=== PATIENT | male | born 1945 | race Caucasian/White ===

== ENCOUNTER 2017-02-17 23:50 | Inpatient (IN) | payer MEDICARE ==
--- NOTE | ~2017-02-17 | CN ---
Consultation Report [facility] [address] [place]. [address] NAME: RISHI AQUINO : 41 STATUS : ADM IN [facility]#: [id number] AGE: 71 ADM/REG DATE : 02/17/17 MR#: [id number] REPORT SERV DATE: 02/18/17 DICTATED BY: CHECO RAJAN DATE: 02/18/17 REPORT STATUS : Draft TRANSCRIBED BY: MODL DATE: 02/18/17 CONSULTATION DATE OF CONSULTATION: REASON FOR CONSULTATION: Mr. Rishi Aquino is a 71-year-old male, who enters from the emergency room with chest discomfort. CVD PHYSICIAN: Checo Rajan M.D. HISTORY OF PRESENT ILLNESS: Mr. Aquino has a long history of coronary artery disease with previous stenting. About a week ago, he then began to develop right shoulder pain. This started to radiate up until right neck and chest. It had occurred randomly throughout the day and went to usually last 5-10 minutes. He is fairly inactive, so it is hard to get a specific relationship to exercise. He did not get nausea, vomiting, diaphoresis, palpitations, syncope, or presyncope with this. He would occasionally get short of breath. REVIEW OF SYSTEMS: Negative for PND, rash, change in bowel habit, fever or chills, palpitations, syncope or presyncope. Rest is negative. PAST MEDICAL HISTORY: 1. Hypertension. 2. Hyperlipidemia, on atorvastatin. 3. Bare metal stent, 2008. 4. Peripheral vascular disease without significant claudication. 5. Continued cigarette abuse. SOCIAL HISTORY: Continues to smoke. He is fairly inactive. FAMILY HISTORY: Noncontributory. PHYSICAL EXAMINATION: VITAL SIGNS: Blood pressure 158/80, pulse 73. He is afebrile, resting comfortably at this time without any chest discomfort. GENERAL: Resting comfortably, nutritional status appears adequate. EYES: PERRLA. LUNGS: No labored use of accessory muscles. Without rales or wheezes. COR: PMI is not displaced. No thrills or heaves. NL S1 and S2. S4 gallop is present. PULSES: Carotids without bruits. ABD: +BS, nontender. EXT: 1+ edema noted. SKIN: No petechiae. NEURO: Alert and oriented. Does not appear anxious or depressed. Consultation Report [facility] [address] [place]. [address] NAME: RISHI AQUINO : 41 STATUS : ADM IN PAT#: [id number] AGE: 71 ADM/REG DATE : 02/17/17 MR#: [id number] REPORT SERV DATE: 02/18/17 DICTATED BY: CHECO RAJAN DATE: 02/18/17 REPORT STATUS : Draft TRANSCRIBED BY: MODL DATE: 02/18/17 LABORATORY EVALUATION: 1. EKG shows a right bundle-branch block, but no acute changes. 2. Troponin is increased from 0.03 to 0.07. ASSESSMENT: At this time, this gentleman has known coronary artery disease and presents with chest pain at rest with mildly positive enzymes. At this time, we will schedule for cardiac catheterization and maximize medical therapy. He understands the risks and benefits of the arteriogram having been through this before. Unfortunately, we will have to keep in mind that he has been medically noncompliant in the past. MANGO/JENNY Checo Rajan M.D. / [id number] CC: Pratik Neves M.D.
--- NOTE | ~2017-02-17 | CN ---
Consultation Report [facility] [address] [place]. [address] NAME: RISHI AQUINO : 41 STATUS : ADM IN PAT#: [id number] AGE: 71 ADM/REG DATE : 02/17/17 MR#: [id number] REPORT SERV DATE: 02/19/17 DICTATED BY: MANISHA JACKSON DATE: 02/18/17 REPORT STATUS : Draft TRANSCRIBED BY: MODL DATE: 02/18/17 CONSULTATION DATE OF CONSULTATION: 02/18/2017 REASON FOR CONSULTATION: Multivessel coronary artery disease. HISTORY OF PRESENT ILLNESS: This is a pleasant 71-year-old male, who has a longstanding history of coronary artery disease, status post bare metal stent in 2008 with ongoing tobacco abuse, high blood pressure, hyperlipidemia, and medical noncompliance. He presented to the emergency room on the evening of 02/17/2017 with complaints of chest tightness and neck pain that radiated up into the right shoulder. He said that this has been going on for a couple of weeks. He was also experiencing some lower extremity weakness. In the emergency room, he was found to have a mildly elevated troponin at 0.03. An EKG showed inferolateral T-wave inversion with ST depression. His blood pressure was elevated in the 160 to 200/100 range. His workup initially was to rule out TIA. He had a CT scan of the brain, which was negative for any acute abnormality. Second troponin was elevated at 0.07. Per TIA protocol, the patient was given Plavix 300 mg this morning and then taken for cardiac catheterization which revealed multivessel coronary artery disease including a distal left main coronary artery stenosis of 50%, a 75% stenosis of his mid-to- distal LAD, 70% stenosis to his first diagonal, 70% stenosis to his first obtuse marginal, 60% proximal RCA lesion, and a 99% right PDA, with ejection fraction calculated around 45% with no mention of valvular abnormality. He had a carotid ultrasound performed earlier today, which showed no significant carotid disease. Currently, the patient is recovering after right radial catheterization with no complaints of chest pain or shortness of breath. His lower extremity weakness has improved and his blood pressure is in the 170s/90s range. PAST MEDICAL HISTORY: High blood pressure, hyperlipidemia, peripheral vascular disease, coronary artery disease with previous stent, ongoing tobacco abuse, and medical noncompliance. SURGICAL HISTORY: Bare metal stent in 2009, and tonsillectomy. SOCIAL HISTORY: He is a 7-vkxd-abs-day smoker for 30 years. Denies any alcohol abuse or use of illicit drugs. He is retired and . 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 FAMILY HISTORY: He has a mother with coronary artery disease and father who of leukemia. ALLERGIES: NO KNOWN DRUG ALLERGIES. HOME MEDICATIONS: Aspirin 325 mg p.o. daily, Toprol-XL 100 mg p.o. daily, and lisinopril 10 mg per day. Consultation Report [facility] [id number] [place]. [address] NAME: RISHI AQUINO : 41 STATUS : ADM IN [facility]#: [id number] AGE: 71 ADM/REG DATE : 02/17/17 MR#: [id number] REPORT SERV DATE: 02/19/17 DICTATED BY: MANISHA JACKSON DATE: 02/18/17 REPORT STATUS : Draft TRANSCRIBED BY: JENNY DATE: 02/18/17 REVIEW OF SYSTEMS: A 12-point review of systems was obtained and is negative other than HPI. PHYSICAL EXAMINATION: VITAL SIGNS: From today, temperature 97.5, heart rate 77, blood pressure 156/73, respiratory rate 20, and O2 saturation 94% on 2 L. GENERAL: Pleasant, obese male in no acute distress. NEURO: Alert and oriented x3. Pupils are equal, round, and reactive to light and accommodation. He has equal strength bilaterally of upper extremities and lower extremities. PSYCH: Normal mood. Talkative. Friendly. HEENT: Head normocephalic and atraumatic. Sclerae clear. Poor dentition, but no obvious caries or abscesses. Nose midline with no abnormality. NECK: Supple with no thyromegaly or lymphadenopathy. LUNGS: Clear to auscultation bilaterally with normal effort. He has a productive cough. CARDIAC: S1 and S2 with no murmurs, rubs, or gallops. ABDOMEN: Soft, obese, and nontender with active bowel sounds. EXTREMITIES: Free of cyanosis, clubbing, or edema. LABORATORY DATA: White blood cell count 11.4, hemoglobin 18.4, hematocrit 52.8, platelets 231. Sodium 146, potassium 4.3, chloride 111, bicarbonate 29, BUN 14, creatinine 0.9, glucose 146. BNP 149. ASSESSMENT AND PLAN: This is a 71-year-old male, who is admitted with chest pain and neurological symptoms, initially thought to be in line with transient ischemic attack or cerebrovascular accident. His blood pressure was also elevated upon admission. His neuro workup was negative and he was given Plavix 300 mg orally this morning x1 dose per TIA protocol. The patient was then taken for cardiac catheterization, which showed multivessel coronary artery disease as described above. The patient needs four to five-vessel CAB, but unfortunately, given the fact that he was given Plavix this morning, we will need to wait for Plavix washout. I did discuss the risk and benefits of surgery with the patient as well as his STS risk scores. STS risk stratification for him in this particular surgery includes an overall mortality of 3.6% and a morbidity/mortality of 27.5%. I discussed these findings in relation to expectation for surgery and recovery, and the patient is willing to proceed. He is, however, upset that he is going to have to wait several days before proceeding with surgery. I discussed the reasons of why we choose to wait given the fact that he was given Plavix and he says that he understands. As for now, the patient is agreeable to stay. We will get a CT scan of his chest without contrast due to the history of heavy smoking as well as a bilateral lower extremity venous mapping and then get TEG with Plavix cup on to check platelet inhibition and proceed with surgery either Saturday or Saturday. We would like to thank you for the consultation. We look forward to helping you take care of Mr. Rishi Aquino. Consultation Report [address] [address] NAME: RISHI AQUINO : 41 STATUS : ADM IN PAT#: [id number] AGE: 71 ADM/REG DATE : 02/17/17 MR#: [id number] REPORT SERV DATE: 02/19/17 DICTATED BY: MANISHA JACKSON DATE: 02/18/17 REPORT STATUS : Draft TRANSCRIBED BY: JENNY DATE: 02/18/17 JENNIFER/JENNY Manisha Jackson NP / [id number] CC: Isauro Cordoba M.D.
--- NOTE | ~2017-02-17 | CN ---
Consultation Report [facility] [address] [place]. [address] NAME: RISHI AQUINO : 41 STATUS : ADM IN PAT#: [id number] AGE: 71 ADM/REG DATE : 02/17/17 MR#: [id number] REPORT SERV DATE: 02/20/17 DICTATED BY: CURTIS ENRIQUEZ DATE: 02/20/17 REPORT STATUS : Draft TRANSCRIBED BY: MODL DATE: 02/20/17 CONSULTATION DATE OF CONSULTATION: 02/20/2017 REQUESTING PHYSICIAN: Dr. Montgomery. CHIEF COMPLAINT: Shortness of breath in a patient, tentatively scheduled for coronary artery bypass graft surgery. HISTORY OF PRESENT ILLNESS: Mr. Rishi Aquino is a morbidly obese 71-year-old white male with a past medical history significant for coronary artery disease, hypertension, dyslipidemia, and ongoing tobacco abuse, who presents to [facility]'s Emergency Room with complaints of chest pain and lower extremity weakness. It should be noted that, Mr. Aquino has not been hospitalized recently and is usually in fairly good health. Mr. Aquino is not currently followed by a handkerchief maker. He has not usually required supplemental oxygen. He takes no pulmonary medications. The patient has smoked cigarettes up until the time of presentation. He has smoked approximately one pack a day for a period of approximately thirty years. He does have complaints of disordered sleep, which would include frequent nighttime awakenings and non-restorative sleep. He described his exercise tolerance as worsening as of late. This being said, he can usually walk 50 to 100 yards before experiencing some degree of shortness of breath. Mr. Aquino states that, he began to experience chest pain about a week ago. It was radiating up into the neck and chest. He did have some lower extremity weakness as well. The symptoms became progressively worse and culminated in his presentation to [facility]'s emergency room. On arrival, he was found to have a systolic blood pressure of 167. He was afebrile. Oxygenation was 93% on room air. Initial blood work revealed a white blood cell count of 9900, creatinine was 0.92. He did eventually undergo cardiac catheterization, which demonstrated multivessel coronary artery disease. The patient eventually underwent a CT of the chest, which demonstrated a calcified granuloma in the left lung. Emphysematous changes were appreciated in the apices. Radiology suggested that there may be a mild interstitial fibrosis with peripheral scarring and ground-glass opacities, thyroid nodule is described as well. As the patient is scheduled for a possible coronary artery bypass graft surgery, Pulmonary has been consulted for risk stratification as well as optimization prior to the surgery. Currently, Mr. Aquino's main pulmonary complaint is cough. He is producing a small amount of non-purulent sputum. He denies shortness of breath at rest. He denies any wheezing. The patient states that, he has had two pneumonias in the remote past. He does not have frequent exacerbations of COPD. He denies childhood asthma. He denies any recent sick contacts. Consultation Report [facility] [id number] [place]. [address] NAME: RISHI AQUINO : 41 STATUS : ADM IN [facility]#: [id number] AGE: 71 ADM/REG DATE : 02/17/17 MR#: [id number] REPORT SERV DATE: 02/20/17 DICTATED BY: CURTIS ENRIQUEZ DATE: 02/20/17 REPORT STATUS : Draft TRANSCRIBED BY: JENNY DATE: 02/20/17 The patient does have known hypertension and dyslipidemia. He has previous known coronary artery disease. He states that, he has no current angina like symptoms. He denies any orthopnea, paroxysmal nocturnal dyspnea, or dependent edema. In regard to constitutional symptoms, he currently denies fever, chills, nausea, vomiting, chest pain, abdominal pain, or edema. PAST MEDICAL HISTORY: 1. Hypertension. 2. Dyslipidemia. 3. Coronary artery disease, status post stent placement. 4. Peripheral vascular disease. 5. Tobacco dependency. 6. Nephrolithiasis. PAST SURGICAL HISTORY: Tonsillectomy and adenoidectomy. FAMILY HISTORY: The patient states that, his father of lung cancer. SOCIAL HISTORY: The patient is . He has one son. He denies any known exposures to dust, silica, or asbestos. TOBACCO/ALCOHOL: As previously mentioned, the patient smoked cigarettes up until the time of presentation. He has smoked approximately one pack a day for a period of thirty years. He denies any recent alcohol or illicit drug use. MEDICATIONS: 1. Crestor. 2. Lisinopril. 3. Metoprolol. 4. Aspirin. ALLERGIES: THE PATIENT HAS NO KNOWN DRUG ALLERGIES. REVIEW OF SYSTEMS: Complete review of systems was performed with pertinent positives and negatives contained within the body of the HPI. PHYSICAL EXAMINATION: VITAL SIGNS: Blood pressure is 177/84, heart rate 69, T-max is 97.6, respiratory rate is 18, and SpO2 is 91% on room air. GENERAL: The patient is a pleasant, well-nourished/well-developed male, who is not currently exhibiting any signs of acute distress. Skin: Skin with appropriate texture and turgor. No rashes, lesions, or ulcers. Nails are clear without cyanosis or clubbing. Consultation Report [facility] [id number] [place]. [address] NAME: RISHI AQUINO : 41 STATUS : ADM IN [facility]#: [id number] AGE: 71 ADM/REG DATE : 02/17/17 MR#: [id number] REPORT SERV DATE: 02/20/17 DICTATED BY: CURTIS ENRIQUEZ DATE: 02/20/17 REPORT STATUS : Draft TRANSCRIBED BY: JENNY DATE: 02/20/17 HEENT: Head: Skull is normocephalic/atraumatic. Facies symmetric. No masses or lesions. Eyes: Sclera anicteric, conjunctiva pink without exudates. Extra ocular movements intact. Pupils are equal, round, reactive to light. Ears: Auricles and tragus without pain to palpation. Hearing is grossly intact. Nose: Bilateral nasal patency. Sinuses without tenderness upon palpation. Throat: The patient is edentulous. Mallampati class 3-4. Lips, oral mucosa, tongue, palate, and pharynx pink and moist without lesions. Uvula rises equally on phonation. Tongue midline without deviation. NECK: Neck supple. Trachea midline. No cervical lymphadenopathy appreciated. THORAX/LUNGS: Thorax is symmetric with equal chest rise. Breath sounds audible through entire field. No rales, wheezes. A few scattered rhonchi appreciated throughout. CARDIOVASCULAR: Regular rate and rhythm. No murmurs, rubs, or gallops. Anterior chest without thrills, heaves, or lifts. ABDOMEN: Soft. Non-distended, non-tender. Active bowel sounds in all four quadrants. No hepatosplenomegaly noted. PERIPHERAL VASCULAR: No edema. No varicosities, stasis changes, open sores, ulcerations, or phlebitis. 2+ pulses in radial and dorsalis pedis. MUSCULOSKELETAL: Full AROM and PROM in all joints. No evidence of erythema, deformity, or crepitus. NEUROLOGIC: CN II - XII grossly intact. Good muscle bulk and tone bilaterally. Strength 5/5 throughout. PSYCHIATRIC: The patient demonstrates good judgment and insight. The patient is A&O x 3. ACCESSORY DATA: Reveals a white blood cell count of 10,000, hemoglobin and hematocrit is 17.2 and 50. Creatinine is 0.72. CT of the chest reveals emphysematous changes in the apices. There is possible mild interstitial fibrosis in the bases. There is a calcified granuloma in the left lung. There is a 3 x 2.2 left thyroid nodule or cyst in the superior mediastinum. Echocardiogram reveals a left ventricular ejection fraction of 45%, normal right ventricular size and systolic function. Cardiac cath reveals the left main at 50%, mid LAD is 70%, first diagonal as 70%, left circumflex 70%, RCA 60%. IMPRESSION: 1. Coronary artery disease with multivessel disease. 2. Clinical chronic obstructive pulmonary disease. 3. Disordered sleep - possible obstructive sleep apnea. 4. Tobacco abuse - complicated. 5. Doubt pulmonary fibrosis. 6. Thyroid nodule/cyst. PLAN: 1. At this time, the patient has been tentatively scheduled for coronary artery bypass Consultation Report [address] [address] NAME: RISHI AQUINO : 41 STATUS : ADM IN [facility]#: [id number] AGE: 71 ADM/REG DATE : 02/17/17 MR#: [id number] REPORT SERV DATE: 02/20/17 DICTATED BY: CURTIS ENRIQUEZ DATE: 02/20/17 REPORT STATUS : Draft TRANSCRIBED BY: MODL DATE: 02/20/17 graft surgery. The plan is to allow for a Plavix washout. 2. In regard to the patient's risk stratification, we would consider him to be a moderate risk for pre, nabil, and postoperative pulmonary complications. Using the ARISCAT score, the patient has a 42.1% risk for pulmonary complications, which would include atelectasis, pneumonia, respiratory failure, hypoxemia, and even exacerbation of COPD. Using the Arozullah score, the patient would have a 4.2% risk for prolonged mechanical ventilation. To better elucidate the patient's risk stratification, we will obtain full pulmonary function testing with arterial blood gas sampling with further recommendations to follow. In an attempt to optimize the patient, we will place him on a full armamentarium of nebulized medications. There is no clear sign that the patient is currently exhibiting an exacerbation and as such, we will hold antibiotics and steroids at this time. 3. In regard to the patient's clinical COPD, again we will place him on nebulized medications. He would likely benefit from outpatient followup moving forward. 4. In regard to the patient's disordered sleep, we will obtain an overnight pulse oximetry to screen for possible obstructive sleep apnea. 5. In regard to the patient's ongoing tobacco abuse, we have spent greater than 10 minutes counseling the patient on the benefits of smoking cessation. 6. In regard to the suggested findings of pulmonary fibrosis on the patient's CT scan, these seem to be very mild in nature. We will revisit these findings with the radiology department. I do not see a clear indication to proceed with lung biopsy at the time of the procedure. The aforementioned impression and plan has been discussed with Dr. Fonseca, who will follow further recommendations. We thank you for this consult and look forward to participating in the care of Mr. Rishi Aquino. GBS/MODL Curtis Enriquez PA-C / [id number] CC: Shaista Wheeler M.D.
--- NOTE | ~2017-02-17 | IDS ---
Interim Discharge Summary [facility] [address] [place]. [address] NAME: RISHI AQUINO : 41 STATUS : ADM IN [facility]#: [id number] AGE: 71 ADM/REG DATE : 02/17/17 MR#: [id number] REPORT SERV DATE: 02/25/17 DICTATED BY: CONSUELO NEFF DATE: 02/25/17 REPORT STATUS : Draft TRANSCRIBED BY: MODEmmanuel DATE: 02/25/17 ADMISSION DATE: 02/17/2017 DISCHARGE DATE: Date that the patient has been transferred to [facility] ICU is 02/25/2017. DIAGNOSES: So far, 1. Acute coronary syndrome secondary to multivessel coronary artery disease, requiring coronary artery bypass graft which the patient is getting on 02/25/2017. 2. History of coronary artery stenting in the past and now the patient again presented with chest pain and abnormal EKG and underwent a cardiac catheterization that showed multivessel coronary artery disease, as outlined in the cardiac catheterization and hence, the need for the CABG. 3. Hyperlipidemia - the patient is on statin. 4. Hypertension - the patient is on adequate medications. 5. Obesity hypoventilation syndrome and obstructive sleep apnea from obesity - Pulmonology has been consulted and had ordered PFTs and will continue to follow the patient. 6. Tobacco abuse - the patient has stopped now and has been on a nicotine patch so far. 7. There was a concern that this patient had an early stroke as he complained of some arm weakness upon admission. However, a CT scan of the brain that was obtained came back negative for stroke and Neurology was consulted and they subsequently signed off on this patient as this is not an issue. BRIEF HOSPITAL COURSE: Mr. Rishi Aquino is a 71-year-old male patient with multiple risk factors for acute coronary syndrome. First of all, he has had coronary artery disease status post stenting; he has hypertension, obesity, hyperlipidemia, and smokes. The patient also has obstructive sleep apnea and smokes about a pack a day. Hence, the patient was admitted for ACS and Cardiology was consulted. The patient underwent a cardiac catheterization that showed multivessel disease and cardiothoracic surgery was consulted. As the patient was on Plavix, we had to wait until today for Plavix washout, so that he could have his coronary artery bypass graft. In the meantime, other doctors who have been consulted include Cardiothoracic Surgery, Pulmonology as the patient has ESTEBAN and OHS, Neurology briefly as there was a question of some arm weakness at the beginning of admission. However, the arm weakness and the neurological problem has resolved and it was just an incidental finding. The patient continued to be very stable throughout hospitalization until today and on the nicotine patch, he did not have any urge to smoke. He denied any symptoms of chest pain once he was started on the IV heparin all this while. His shortness of breath also was at baseline and the patient was able to ambulate fairly well in the hallways until 02/25/2017 on the day of his surgery. Hence, he is being moved to the service of Cardiothoracic Surgery with the patient being in [facility] ICU as of 02/25/2017 for CABG and post CABG care. Please consult hospitalist if necessary. Interim Discharge Summary [address] [address] NAME: RISHI AQUINO : 41 STATUS : ADM IN [facility]#: [id number] AGE: 71 ADM/REG DATE : 02/17/17 MR#: [id number] REPORT SERV DATE: 02/25/17 DICTATED BY: CONSUELO NEFF DATE: 02/25/17 REPORT STATUS : Draft TRANSCRIBED BY: JENNY DATE: 02/25/17 ALLEN/JENNY Consuelo Neff M.D. / [id number] CC: Consuelo Neff M.D.
--- NOTE | ~2017-02-17 | HP ---
History And Physical [facility] [address] [place]. [address] NAME: LALI AQUINO : 41 STATUS : ADM Demetria PAT#: [id number] AGE: 71 ADM/REG DATE : 02/17/17 MR#: [id number] REPORT SERV DATE: 02/18/17 DICTATED BY: ANGELA BLOUNT DATE: 02/18/17 REPORT STATUS : Draft TRANSCRIBED BY: MODEmmanuel DATE: 02/18/17 DATE OF ADMISSION: 02/17/2017 POINT OF ENTRY: [facility] Emergency Department. PRIMARY CARE PHYSICIAN: None at this time. Formerly, Dr. Mahesh Shannon. PRIMARY BAND AND CUFF CUTTER: Dr. Rajan. CHIEF COMPLAINT: Chest pain. HISTORY OF PRESENT ILLNESS: Mr. Aquino is a 71-year-old gentleman with a history of coronary artery disease with multiple prior PCIs as well as hypertension, hyperlipidemia, active tobacco abuse, who presents to the emergency department today with reports of chest pain. The patient states that he has had episodes of chest pain going on now for the past few weeks. It is primarily intermittent in nature, located on the right side of his chest, with radiation to the right arm as well as side of his neck and shoulder. It is associated with shortness of breath as well as nausea. He denies any known alleviating or exacerbating factors. Describes the pain as a pressure-type sensation and is very similar in nature to the chest pain he has had previously when he underwent stent placement in the past. For the past week, the patient reports increasing severity as well as frequency of these chest pain episodes, and today, his episode of chest pain was the most severe it has been, as well as lasted for quite some time, prompting his presentation to the emergency department. Upon further questioning by the ER physician, the patient also reports an episode of some left leg weakness as well as facial droop a few days ago, which resolved spontaneously. In the emergency department, the patient also was reporting some left leg weakness. He received some sublingual nitroglycerin with complete resolution of the patient's chest pain. Initial evaluation in the emergency department notable for a blood pressure of 167/101, it has been as high as 200s/100s. EKG initially was concerning for inferolateral T-wave inversions as well as some mild ST depressions. CT scan of the brain was unremarkable. Troponin was 0.03. Status post nitroglycerin and cessation of the patient's chest pain, repeat EKG showed dramatic improvement in his EKG, now with mild ST depressions, but no longer with T-wave inversions. The patient also reports that his left lower extremity weakness has now completely resolved. The patient was subsequently admitted to the Hospitalist Service for further evaluation and management. The patient denies any recent fevers, night sweats, chills, abdominal pain, nausea, vomiting, diarrhea, constipation, dysuria, lower extremity edema, melena, hematochezia, hemoptysis, or hematemesis. He states that he has been compliant with his aspirin as well as his hypertension medications. Last checked his blood pressure about a week ago at a drug History And Physical [address] [address] NAME: LALI AQUINO : 41 STATUS : ADM Demetria PAT#: [id number] AGE: 71 ADM/REG DATE : 02/17/17 MR#: [id number] REPORT SERV DATE: 02/18/17 DICTATED BY: ANGELA BLOUNT DATE: 02/18/17 REPORT STATUS : Draft TRANSCRIBED BY: JENNY DATE: 02/18/17 store, it was about 160s/90s. REVIEW OF SYSTEMS: Comprehensive review of systems otherwise negative, unless, listed in the history of present illness. PREVIOUS MEDICAL HISTORY: 1. Coronary artery disease with multiple prior PCIs including stents to the RCA, left circumflex, as well as second diagonal with PTCA to the mid PDA. 2. Hypertension. 3. Hyperlipidemia. 4. Active tobacco abuse. 5. Nephrolithiasis. SURGICAL HISTORY: 1. PCI. 2. Tonsillectomy. ALLERGIES: NO KNOWN DRUG ALLERGIES. HOME MEDICATIONS: Pending at the time of dictation. SOCIAL HISTORY: He smokes a pack per day, has at least a 30 pack-year smoking history. Denies alcohol. Denies any illicits. FAMILY MEDICAL HISTORY: Mother in her mid 70s of coronary artery disease. Father with leukemia. Sibling with lung cancer. LABS AND IMAGIN. White count is 9.9, hemoglobin is 18.6, hematocrit is 53.3, and platelet count is 235. INR is 1.1. 2. Sodium is 146, potassium 4.3, chloride 111, carbon dioxide 29, BUN 14, creatinine 0.92, glucose is 146, calcium is 9.3, magnesium is 2.1. 3. Troponin is 0.03. 4. Chest x-ray per review shows "no acute cardiopulmonary abnormality.". 5. EKG per my review:. a. EKG #1 shows a right bundle branch block with inferolateral T-wave inversions as well as some mild ST depressions. When compared to 2012 EKG, this is considerably changed. b. EKG #2 shows right bundle branch block with resolution of the T-wave inversions as well as dramatic improvement in his ST depressions and the inferolateral leads. 6. CT scan of the brain shows chronic ischemic white matter changes. No acute intracranial abnormality. PHYSICAL EXAMINATION: VITAL SIGNS: Temperature is 97.5 degrees Fahrenheit, pulse of 77, respirations of 21, History And Physical [address] [address] NAME: LALI AQUINO : 43 STATUS : ADM Demetria PAT#: [id number] AGE: 71 ADM/REG DATE : 02/17/17 MR#: [id number] REPORT SERV DATE: 02/18/17 DICTATED BY: ANGELA BLOUNT DATE: 02/18/17 REPORT STATUS : Draft TRANSCRIBED BY: JENNY DATE: 02/18/17 saturating 93% on room air, blood pressure 167/101. On recheck, blood pressure is now 195/105, heart rate of 94. GENERAL: The patient is awake, alert, and in no acute distress. Resting comfortably in bed. He is a well-developed, well-nourished, elderly male. HEENT: Atraumatic and normocephalic. Moist mucous membranes. Pupils are equal, round, reactive to light and accommodation. Extraocular eye movements were intact. No scleral icterus. NECK: No jugular venous distention. No carotid bruits. CARDIAC: Regular rate and rhythm. No murmurs, rubs, or gallops. Normal S1. Normal S2. LUNGS: Clear to auscultation bilaterally. Does have some decreased breath sounds in the bases as well as some prolonged respiratory phase, but no wheezes, rhonchi, or crackles. ABDOMEN: Soft, nontender, nondistended. Good bowel sounds. No rebound, guarding, or rigidity. EXTREMITIES: Warm, perfused. No cyanosis, clubbing, or edema. SKIN: Warm and dry. PSYCH: Affect appropriate. NEURO: Alert and oriented x3. Cranial nerves 2 through 12 are grossly intact. Speech is normal. Gait not assessed. Strength is 5/5 bilateral upper and lower extremities. Cerebellar function intact. ASSESSMENT AND PLAN: Mr. Aquino is a 71-year-old gentleman, who presents with a few-week history of increasing severity and frequency of chest pain episodes concerning for unstable angina with also reports of left lower leg weakness concerning for possible transient ischemic attack and also found to have uncontrolled hypertension. The patient's uncontrolled hypertension may be the etiology of both his cardiac as well as neurologic symptoms or we may be dealing with two separate issues. PROBLEM LIST: 1. Unstable angina and chest pain. 2. Hypertensive urgency versus emergency. 3. Concern for possible transient ischemic attack with left lower extremity weakness. 4. Active tobacco abuse. PLAN: 1. Unstable angina with dynamic EKG changes. The patient's story of increase in severity and frequency of his chest pain is concerning for unstable angina. The patient also has dynamic EKG changes, which have improved somewhat with the administration of nitroglycerin and resolution of his chest pain. The patient also does have extensive coronary artery disease as well as multiple risk factors including active tobacco abuse, hypertension, and hyperlipidemia. His initial troponin was unremarkable. We will continue to trend these out. We will consult the patient's primary diet assistant for assistance. Continue aspirin. We will place him on beta-jimbo, statin, as well as Plavix. We will order an echocardiogram. We will make the patient nothing by mouth in the event that Dr. Rajan would like either cardiac catheterization or nuclear evaluation. Given his unstable angina and dynamic EKG changes, I would like to place the patient on heparin, however, his uncontrolled blood pressure currently prevents me from doing so. If I am able to get the patient's blood pressure under control, we will History And Physical [address] [place]. [address] NAME: LALI AQUINO : 41 STATUS : ADM Demetria PAT#: [id number] AGE: 71 ADM/REG DATE : 02/17/17 MR#: [id number] REPORT SERV DATE: 02/18/17 DICTATED BY: ANGELA BLOUNT DATE: 02/18/17 REPORT STATUS : Draft TRANSCRIBED BY: MODL DATE: 02/18/17 start him on a heparin drip. 2. Left lower extremity weakness, concern for possible transient ischemic attack. The patient's left lower extremity weakness now is completely resolved, though he does report an episode few days ago. Also, left lower extremity weakness is associated with facial droop. This is concerning for possible recurrent transient ischemic attack versus possible hypertensive emergency with neurologic symptoms. CT scan of the brain was unremarkable. We will consult Neurology for assistance as well as schedule for an MRI, MRA, as well as blood pressure control. 3. Hypertensive urgency versus emergency. I suspect that the patient's chest pain as well as neurologic symptoms may be related to his uncontrolled blood pressure. We will continue the patient's home blood pressure medications once confirmed. In the meantime, we will also give an inch of nitroglycerin paste as well as IV hydralazine p.r.n. for immediate blood pressure control. We will also give him some oral metoprolol given his concern for unstable angina. 4. Active tobacco abuse. Counseled the need for tobacco cessation. 5. Deep venous thrombosis prophylaxis. Lovenox subcu. If I am able to get his blood pressure under control, we will place him on heparin infusion. 6. Code status. The patient wished to be full code. AIDEN/JENNY Angela Blount MD / [id number] CC: Checo Rajan M.D.
--- NOTE | ~2017-02-17 | PUL ---
[id number] [place]. [address] NAME: LALI BARKSDALE : 41 STATUS : ADM IN PAT#: [id number] AGE: 71 ADM/REG DATE : 02/17/17 MR#: [id number] REPORT SERV DATE: 02/22/17 DICTATED BY: REZA FONSECA DATE: 02/22/17 REPORT STATUS : Draft TRANSCRIBED BY: MODL DATE: 02/22/17 PULMONARY FUNCTION TEST STUDY: NOCTURNAL OXIMETRY STUDY START DATE: 02/20/2017 at 10:46 p.m. END DATE: 02/21/2017 at 4:54 a.m. DESCRIPTION: Study was performed on room air was 6 hours, 6 minutes, and 48 seconds of recording time. Average heart rate 67 with a low of 55 and a high of 88. Average O2 saturation 91.4% with a low of 82%. Time below 88% was 5 minutes and 48 seconds, or 1.6% of the study. RIA was only 2.6. IMPRESSION: Abnormal oximetry study on room air showing significant O2 desaturation below 88%, which would qualify him for nocturnal oxygen. Will keep O2 saturations at appropriate levels with nasal cannula oxygen. This does not rule out sleep apnea, however, if that is of clinical concern, then this should be better evaluated, which may include outpatient sleep study. FELICIANO/JENNY Reza Fonseca DO / [id number]
--- NOTE | ~2017-02-17 | CN ---
Consultation Report [facility] [address] [place]. [address] NAME: LALI BARKSDALE : 41 STATUS : ADM IN [facility]#: [id number] AGE: 71 ADM/REG DATE : 02/17/17 MR#: [id number] REPORT SERV DATE: 02/18/17 DICTATED BY: ASHLYN DESAI DATE: 02/18/17 REPORT STATUS : Draft TRANSCRIBED BY: MODL DATE: 02/18/17 NEUROLOGY CONSULTATION DATE OF CONSULTATION: 02/18/2017 REASON FOR CONSULTATION: Possible TIA. PRIMARY CARE PHYSICIAN: Dr. Mahesh Shannon. DIRECTOR PRODUCT DEVELOPMENT: Checo Rajan M.D. HOSPITALIST: Isauro Cordoba M.D. HISTORY OF PRESENT ILLNESS: The patient is a 71-year-old male, who came into the hospital with complaints of chest pain. He states that he is been having chest pain for the past few weeks. Consequently, he was admitted for further evaluation and workup. The patient did mention that he had been having left leg weakness and reported facial droop for several days prior to admission, but also stated that it resolve spontaneously. When questioned more extensively, the patient mentions that the only time his leg is numb and weak is after he has been sitting down for a prolonged period of time. He has never had any weakness, numbness, or problems with his extremities otherwise. It only happens when he sits down for a prolonged period of time. His leg will feel numb and weak and then it will resolve after he has been walking around. He denies any confusion. He denies any visual changes. He denies any headache, ataxia, numbness, or weakness in any of the other extremities. PAST MEDICAL HISTORY: Coronary artery disease, hypertension, hyperlipidemia, tobacco abuse, and nephrolithiasis. PAST SURGICAL HISTORY: Coronary stents (RCA, left circumflex, and second diagonal), tonsillectomy, and adenoidectomy. HOME MEDICATIONS: Crestor that was discontinued, lisinopril 40 mg daily, metoprolol 25 mg b.i.d., multivitamin daily, garlic daily, fish oil 1000 mg daily, aspirin 325 mg daily, Niaspan that was discontinued. ALLERGIES: NONE. SOCIAL HISTORY: The patient is . He has one boy. 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 He smokes one pack per day. He does not drink alcohol. He does not use illicits. FAMILY HISTORY: His mother in her 70s from coronary artery disease. His father from lung cancer. He has two brothers, one who from cancer. REVIEW OF SYSTEMS: Consultation Report [facility] [address] [place]. [address] NAME: LALI BARKSDALE : 41 STATUS : ADM IN PAT#: [id number] AGE: 71 ADM/REG DATE : 02/17/17 MR#: [id number] REPORT SERV DATE: 02/18/17 DICTATED BY: ASHLYN DESAI DATE: 02/18/17 REPORT STATUS : Draft TRANSCRIBED BY: MODL DATE: 02/18/17 For pertinent positives please see HPI. PHYSICAL EXAMINATION: VITAL SIGNS: The patient is a 71-year-old male, who stands 6 feet tall and weighs 268 pounds. He is afebrile. Heart rate is 73, respiratory rate 16, O2 saturations on room air 92%, blood pressure 158/90. NEURO: The patient is awake, he is alert, pleasant, communicates appropriately. Speech is clear. Language is fluent. There is no dysarthria or aphasia. Pupils are 3 mm. PERRLA. Cranial nerves 2 through 12 are intact. He can move all extremities x4. There is no ataxia with lnunnn-sf-kwpr or zjfb-ee-vtfv. No pronator drift, dysmetria, or tremor. Upper extremity strength is 5/5. Upper DTRs 1+ bilaterally. No reported sensory deficits. Lower extremity strength is 5/5. DTRs 1+ bilaterally. Downgoing toes. No reported sensory deficits. NECK: No carotid bruits, JVD, or thyromegaly. CHEST: Lung sounds are relatively clear. There are some rhonchi. CARDIAC: Regular rate and rhythm. First degree AV block on monitoring tech. LABORATORY DATA: CBC is normal with a slight elevation in the H and H 18.4 and 52.8. BMP normal except the glucose was 146. Cholesterol values are mildly elevated. BNP is 149, troponin 0.03 and 0.07 consecutively. Chest x-ray no acute changes. CT of the brain, no acute changes. B12 was mildly low at 304. NIH stroke scale is 0. ASSESSMENT/PLAN: 1. Intermittent leg numbness; which sounds more like a lumbar radiculopathy than it does a transient ischemic attack. At this point, we will cancel the patient's MRI of the brain and MRA of the head and neck. He can have an outpatient workup with his PCP for lumbar radiculopathy. The patient will undergo an echocardiogram with bubble study and carotid duplex study. He will be continued on his current medications. Education was done concerning decreasing risk factors. 2. Acute coronary syndrome. This will be worked up per the hospitalist team. Thank you again for including us in consultation. JERZY/JENNY Ashlyn Desai [facility] / [id number] CC: Pratik Neves M.D.
--- NOTE | ~2017-02-17 | OP ---
Record Of Operation [address] [place]. [address] NAME: LALI AQUINO : 41 STATUS : DIS IN PAT#: [id number] AGE: 71 ADM/REG DATE : 02/17/17 MR#: [id number] REPORT SERV DATE: 05/30/17 DICTATED BY: DAMIEN LAZO DATE: 05/30/17 REPORT STATUS : Draft TRANSCRIBED BY: MODL DATE: 05/30/17 DATE OF PROCEDURE: 02/25/2017 ACID BLEACHER: Marcelino Alanis. ANESTHESIOLOGIST: Dr. Yair Wiley and Dr. Win Perez. PREOPERATIVE DIAGNOSES: 1. Non-ST segment elevation myocardial infarction. 2. Three-vessel coronary disease. 3. Hypertension. 4. Hyperlipidemia. 5. Tobacco abuse. 6. Chronic obstructive pulmonary disease. POSTOPERATIVE DIAGNOSES: 1. Non-ST segment elevation myocardial infarction. 2. Three-vessel coronary disease. 3. Hypertension. 4. Hyperlipidemia. 5. Tobacco abuse. 6. Chronic obstructive pulmonary disease. OPERATION/PROCEDURE PERFORMED: 1. Median sternotomy. 2. Extracorporeal circulation. 3. Urgent coronary artery bypass grafting x5, left internal mammary artery, left anterior descending, reverse greater saphenous vein graft to D1, reverse greater saphenous vein graft to obtuse marginal #1, reverse greater saphenous vein graft sequence to the posterior descending artery and posterior lateral branch. 4. Transesophageal echo. 5. Endoscopic vein harvest, right leg. 6. Rigid external fixation of the sternum using a sternal [employer] system. 7. Prevena dressing placement. COMPLICATIONS: None. TUBES AND DRAINS: 1. A 32 straight chest tubes x2, one under the sternum and the mediastinum, one in the left pleural space. 2. Atrial and ventricular pacing wires were placed. POSTOPERATIVE CONDITION: The patient was weaned from cardiopulmonary bypass on dobutamine and epi, to the CVICU. INTRAOPERATIVE FINDINGS: Extremely good ventricle, very large heart, good targets, good Record Of Operation [address] [place]. [address] NAME: LALI AQUINO : 41 STATUS : DIS IN PAT#: [id number] AGE: 71 ADM/REG DATE : 02/17/17 MR#: [id number] REPORT SERV DATE: 05/30/17 DICTATED BY: DAMIEN LAZO DATE: 05/30/17 REPORT STATUS : Draft TRANSCRIBED BY: MODL DATE: 05/30/17 conduit. Transesophageal echo with mild mitral regurgitation. EF approximately 40%. Lipomatous atrial septum and concentric left ventricular hypertrophy. DETAILS OF CARDIOPULMONARY BYPASS GRAFTIN. Graft 1: Left anterior descending was 1.75 mm target. 2. Graft 2: Reverse greater saphenous vein graft to D1. This is a 2 mm target. 3. Graft 3: Reverse greater saphenous vein graft to obtuse marginal #1, this is 1.5 mm target. 4. Graft 4 and 5: Sequence graft, reverse greater saphenous vein graft. The PDA is 1.75 mm and the posterolateral branch was 1.5 mm. There were excellent Doppler signals both pre and post protamine. DETAILS OF STERNAL PLATIN mm screws were used. A 100-degree L plate was placed in the body of the manubrium between the 2nd parasternal wires and two X plates were placed between the sternal wires in the body of the sternum. These X plates used 16 mm screws for a total of 8 screws apiece. INDICATIONS FOR PROCEDURE: Mr. Aquino is a gentleman who was admitted to the hospital with an NSTEMI, was found to have three-vessel disease after cardiac catheterization, was kept in the hospital for Plavix washout and pulmonary treatment and was taken to the operating room. Risks, benefits, and alternatives were discussed with the patient including but not limited to, bleeding, infection, stroke, , heart attack, need for future operations. All questions were answered. His STS risk score was calculated and discussed with the patient. Total risk mortality less than 5% and total morbidity and mortality less than 20% were discussed with the patient. All questions were answered. DETAILS OF PROCEDURE: The patient was brought to the operating room, placed supine on the operating room table. After satisfactory induction of general endotracheal anesthesia, he was prepped and draped in usual sterile fashion, working simultaneously. Median sternotomy was performed. Endoscopic vein harvest was performed from the right leg. Skin and subcutaneous tissues were divided. Clavipectoral fascia was divided. The sternum was divided in the midline. Sternal retractor was placed. Thymic tissue was divided in the midline. Pericardium was opened in the midline until the diaphragm. Targets were inspected. They were all felt to be appropriate for bypass. Rultract retractor was then placed. The internal mammary artery was harvested in a pedicle fashion. Systemic heparinization was achieved. After 3 minutes, the pedicle was clipped and divided. The bifurcation of the diaphragm was infiltrated with papaverine. Hemostasis was obtained along the chest wall. A 32-Polish chest tube was placed and exteriorized in the left pleural space. The Rultract retractor was removed. Sternal retractor was placed. Pericardial well was created. Ascending aortic cannulation was achieved through dual pursestring at the base of the innominate artery. Dual stage venous cannula was placed in the sidewall of the right atrial appendage. Antegrade root vent cardioplegia tack was placed. The conduit was prepared for bypass, and after documentation of an adequate ACT, cardiopulmonary bypass was initiated. The targets were again inspected, was felt to be appropriate. The cross-clamp was brought up and the heart was arrested with cold antegrade cardioplegia, switching to cold antegrade cardioplegia every 15 to 20 minutes, we recommended the cross-clamp. The bypass grafts were then performed as mentioned in the findings. All distal anastomoses were Record Of Operation [address] [address] NAME: LALI AQUINO : 41 STATUS : DIS IN PAT#: [id number] AGE: 71 ADM/REG DATE : 02/17/17 MR#: [id number] REPORT SERV DATE: 05/30/17 DICTATED BY: DAMIEN LAZO DATE: 05/30/17 REPORT STATUS : Draft TRANSCRIBED BY: JENNY DATE: 05/30/17 performed with 8-0 Surgipro. Proximal anastomoses were performed with 6-0 Prolene after incising the aorta, enlarging with a 5.2 mm punch. The internal mammary artery was brought down through a wide V in the pericardium, was anastomosed to the anterior portion of the LAD. The pedicle was attached to the heart in two places. There was excellent flow in the graft and both proximal and distal to the anastomosis. The vein grafts were de-aired. The cross-clamp was removed. Atrial and ventricular pacing wires were placed. The patient was able to be weaned from cardiopulmonary bypass on dobutamine and epi. The protamine was administered. Hemostasis was achieved. The patient was decannulated. All cannulation sites were oversewn with 4-0 Prolene. Pericardium was loosely reapproximated over the epicardium and the right ventricle and aorta using 2-0 silk. A 32-Polish chest tube was placed under the sternum. The sternum was reapproximated using stainless steel sternal wires. Some of these were double wires. Pectoral fascial flaps were raised to the edge of the sternum and the sternal plates were used as mentioned in the findings. The clavipectoral fascia was then reapproximated using running #1 StrataFix. Subcutaneous tissues closed using continuation of the running #1 StrataFix. Skin closed using 2-0 Quill and a Prevena dressing was placed over. The patient was transferred to the CVICU in critical, stable condition. TAINA/JENNY Damien Lazo MD / [id number]
--- NOTE | ~2017-02-17 | PUL ---
[address] [address] NAME: LALI BARKSDALE : 41 STATUS : ADM IN PAT#: [id number] AGE: 71 ADM/REG DATE : 02/17/17 MR#: [id number] REPORT SERV DATE: 02/20/17 DICTATED BY: REZA FONSECA DATE: 02/20/17 REPORT STATUS : Draft TRANSCRIBED BY: MODL DATE: 02/20/17 PULMONARY FUNCTION TEST DIAGNOSIS: Unstable angina. PROCEDURE: Spirometry. DESCRIPTION OF PROCEDURE: Spirometry ratio 0.63, which is reduced. FEV1 of 1.75 L or 51% and FVC 2.76 L or 59%. IMPRESSION: Moderate large airways obstruction. Possible lung restriction. Get total lung volumes if indicated. CEP/MODL Reza Fonseca DO / [id number] CC: Shaista Wheeler M.D. NO PCP Errol Montgomery MD
--- NOTE | ~2017-02-17 | DS ---
Discharge Summary [facility] [address] [place]. [address] NAME: LALI BARKSDALE : 41 STATUS : DIS IN PAT#: [id number] AGE: 71 ADM/REG DATE : 02/17/17 MR#: [id number] REPORT SERV DATE: 03/03/17 DICTATED BY: JESSICA RUBI DATE: 03/02/17 REPORT STATUS : Draft TRANSCRIBED BY: JENNY DATE: 03/02/17 ADMISSION DATE: 02/17/2017 DISCHARGE DATE: 03/02/2017 CONSULTATION: 1. Cardiology Dr. Checo Rajan. 2. Cardiothoracic Surgery Presley Nunez, [facility]. 3. Pulmonology, Reza Fonseca DO. 4. Neurology Ashlyn Stover, [facility]. PROCEDURE: 1. Coronary artery bypass surgery for multivessel coronary artery disease performed by Dr. Presley Nunez, on 02/25/2017. 2. Cardiac catheterization which confirms the presence of multivessel coronary artery disease. Recommendation was to have a CABG. DISCHARGE DIAGNOSES: 1. Acute coronary artery disease status post CABG. 2. Remote history of coronary artery disease with multiple PCI. 3. Obesity hypoventilation syndrome. 4. Obstructive sleep apnea. 5. Chronic obstructive pulmonary disease. 6. Tobacco abuse. 7. Hypertension. 8. Hyperlipidemia. 9. Peripheral arterial disease without significant claudication. DISCHARGE CONDITION: Stable. HISTORY OF PRESENT ILLNESS: For detailed HPI, please make reference to Dr. Hossein Ayala's dictation on 02/18/2017. In brief, this is a 71-year-old male with medical history of coronary artery disease with history of PCI placement in 2008, ongoing active tobacco use who presented to the emergency department here at [facility] with complaints of chest pain. The patient reported that he was having multiple episodes of chest pain one week prior to presentation. There was associated shortness of breath as well as nausea, denied any presyncopal or syncopal episode prior to presentation. In the ER, the patient was found to have significantly elevated blood pressure of 200/100. EKG was concerning for inferolateral T-wave inversion. Also noted to have a troponin of 0.03. Initial concern on presentation was for unstable angina as well as hypertensive emergency. The patient was subsequently admitted to the Hospitalist Service for further evaluation. 1. Coronary artery disease, status post CABG; given patient's risk factors for coronary artery disease and typical angina chest pain, Cardiology was consulted who recommended patient to undergo left cardiac catheterization. This confirmed the presence of multivessel coronary artery disease. Cardiothoracic Surgery was consulted for CABG. The patient underwent CABG during the course of this admission with 5 vessel bypass without any significant complication. At the time of discharge, the patient was chest Discharge Summary [address] [address] NAME: LALI BARKSDALE : 41 STATUS : DIS IN PAT#: [id number] AGE: 71 ADM/REG DATE : 02/17/17 MR#: [id number] REPORT SERV DATE: 03/03/17 DICTATED BY: JESSICA RUBI DATE: 03/02/17 REPORT STATUS : Draft TRANSCRIBED BY: JENNY DATE: 03/02/17 pain free, had no further episode of shortness of breath, and returned back to his baseline in terms of physical and functional status. 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 2. Obesity hypoventilation syndrome/obstructive sleep apnea. The patient also noted to have nocturnal hypoxia. Pulmonary was consulted prior to surgery to optimize the patient's respiratory status. It was noted that the patient also had significant periods of daytime hypoxia which necessitated the use of CPAP at night. The patient tolerated CPAP with significant improvement. The patient was advised to continue followup with Pulmonology as an outpatient. The patient also has extensive tobacco use. The patient was counseled to stop smoking cigarettes. The patient's COPD medications were optimized prior to discharge. At the time of discharge, the patient had a home O2 evaluation. The patient met criteria for home O2 which was provided prior to discharge. The patient was advised to continue follow up with Pulmonology as an outpatient. 3. Transient ischemic attack. The patient was noted to have significantly elevated blood pressure with some episodes of left lower extremity weakness. There was initial concern for possible TIA. A CT scan of the brain was done that shows no evidence of acute cerebral infarct. The patient's blood pressure gradually trended down and became controlled. The patient's left lower extremity weakness completely resolved. Neurology input was appreciated. No further MRI was recommended per Neurology. 4. Numbness. The patient's numbness and lower extremity symptoms were attributed to the patient's significantly elevated blood pressure. No evidence of acute CVA noted in this admission. The patient was advised to continue statin, aspirin, blood pressure control and follow up with primary care physician. DISCHARGE CONDITION: Stable. DISCHARGE FOLLOWUP: The patient is to follow up with primary linoleum tile floor layer within two to three weeks of discharge. Follow up with primary care physician within one to two weeks of discharge. DISCHARGE ACTIVITY: As tolerated. DISCHARGE DIET: Low salt diet. DISCHARGE ACTIVITY: As tolerated. Greater than 40 minutes was used to prepare this patient's discharge, reconcile medication, and advised the patient on discharge plans and followup. BHASKARO/JENNY Jessica Rubi MD Discharge Summary [address] [address] NAME: LALI BARKSDALE : 41 STATUS : DIS IN PAT#: [id number] AGE: 71 ADM/REG DATE : 02/17/17 MR#: [id number] REPORT SERV DATE: 03/03/17 DICTATED BY: JESSICA RUBI DATE: 03/02/17 REPORT STATUS : Draft TRANSCRIBED BY: JENNY DATE: 03/02/17 / [id number] CC: Jessica Rubi MD
[2017-02-17 22:55] LABS: EOSINOPHILS 4.7 %; EOSINOPHILS ABSOLUTE 0.46 10/3/uL (0.0-0.53); ER CBC TAT 0 Hrs 08 Mins; HEMATOCRIT 53.3 % (40.0-51.0); HEMOGLOBIN 18.6 g/dL (13.6-17.8); IMMATURE GRANULOCYTES 0.3 %; IMMATURE GRANULOCYTES ABSOLUTE 0.03 10/3/uL (0.0-0.11); LYMPHOCYTES 32.5 %; MANUAL DIFF NO %; MEAN CORPUS HGB CONC 34.9 g/dL (32.0-36.0); MEAN CORPUSCULAR HEMOGLOB 32.1 pg (26.0-34.0); MEAN CORPUSCULAR VOLUME 92.1 fL (80-100); MEAN PLATELET VOLUME 10.8 fL (9.2-13.0); MONOCYTES ABSOLUTE 0.79 10/3/uL (0.21-1.20); NEUTROPHILS 53.5 %; NEUTROPHILS ABSOLUTE 5.27 10/3/uL (2.02-8.40); PLATELET COUNT 235 10/3/uL (150-400); RBC DISTRIBUTION WIDTH 13.4 % (12.0-16.0); RED CELL COUNT 5.79 10/6/uL (4.7-6.1); WHITE BLOOD CELLS 9.9 10/3/uL (4.5-10.5)
[2017-02-17 23:02] LABS: INTERNATIONAL NORMAL RATI 1.1 UNITS (-); PARTIAL THROMBO TIME 30.9 SEC (22.5-37.2); PROTIME (NOT ORD) 14.2 SEC (12.0-14.5)
[2017-02-17 23:10] LABS: BUN (BLOOD UREA NITROGEN) 14 MG/DL (6-23); CALCIUM, SERUM 9.3 MG/DL (8.5-10.4); CHEST PAIN PROFILE TAT 0 Hrs 23 Mins; CHLORIDE, SERUM 111 MMOL/L (96-112); CO2 (CARBON DIOXIDE) 29 MMOL/L (24-34); CREATININE 0.92 MG/DL (0.70-1.30); GFR AFRICAN AMERICAN 95 ML/MIN (>=60); GFR NON AFRICAN AMERICAN 82 ML/MIN (>=60); GLUCOSE, SERUM 146 MG/DL (60-99); POTASSIUM, SERUM 4.3 MMOL/L (3.5-5.3); SODIUM, SERUM 146 MMOL/L (135-148); TROPONIN I 0.03 NG/ML (<0.05)
[~2017-02-17 23:50] MED LIST: ASA5GR PO; ASAB PO; BP MED PO; CRESTOR20 MG PO; DENIES MEDS; FISH-EPA1000 MG PO; OXYCODONE PO; PYR200 PO; ZESTRIL30 MG PO
[2017-02-18] MEDS ORDERED: PRIN5 PO (04:52)
[2017-02-18] MEDS ORDERED: ASA5GR PO (04:52)
[2017-02-18] MEDS ORDERED: TOPXL100 (04:53)
[2017-02-18 08:25] LABS: BASOPHILS 0.8 %; BASOPHILS ABSOLUTE 0.09 10/3/uL (0.0-0.16); EOSINOPHILS 4.5 %; EOSINOPHILS ABSOLUTE 0.52 10/3/uL (0.0-0.53); HEMATOCRIT 52.8 % (40.0-51.0); HEMOGLOBIN 18.4 g/dL (13.6-17.8); IMMATURE GRANULOCYTES 0.2 %; IMMATURE GRANULOCYTES ABSOLUTE 0.02 10/3/uL (0.0-0.11); LYMPHOCYTES 23.7 %; LYMPHOCYTES ABSOLUTE 2.71 10/3/uL (0.67-4.30); MEAN CORPUS HGB CONC 34.8 g/dL (32.0-36.0); MEAN CORPUSCULAR HEMOGLOB 32.2 pg (26.0-34.0); MEAN CORPUSCULAR VOLUME 92.3 fL (80-100); MEAN PLATELET VOLUME 10.8 fL (9.2-13.0); MONOCYTES 8.1 %; MONOCYTES ABSOLUTE 0.93 10/3/uL (0.21-1.20); NEUTROPHILS 62.7 %; NEUTROPHILS ABSOLUTE 7.17 10/3/uL (2.02-8.40); PLATELET COUNT 231 10/3/uL (150-400); RBC DISTRIBUTION WIDTH 13.6 % (12.0-16.0); RED CELL COUNT 5.72 10/6/uL (4.7-6.1); WHITE BLOOD CELLS 11.4 10/3/uL (4.5-10.5)
[2017-02-18 08:31] LABS: INTERNATIONAL NORMAL RATI 1.1 UNITS (-)
[2017-02-18 08:56] LABS: B NATRIURETIC PEPTIDE (BNP) 149.3 PG/ML (< 100.0)
[2017-02-18 09:03] LABS: CHOL/HDL RATIO(NOT ORDER) 6.4 (0-5); CHOLESTEROL 204 MG/DL (< 200); CPK 67 U/L (0-200); FREE T4 0.98 NG/DL (0.76-1.46); HDL CHOLESTEROL 32 MG/DL (> 39); LDL CHOLESTEROL 140 MG/DL (< 130); NON-HDL CHOLESTEROL 172 MG/DL (< 160); TRIGLYCERIDE 161 MG/DL (< 150); ULTRASENSITIVE TSH 0.787 MCIU/ML (0.358-3.740)
[2017-02-18 09:04] LABS: CK-MB 2.3 NG/ML; FOLATE 6.3 NG/ML (>5.2); TROPONIN I 0.07 NG/ML (<0.05)
[2017-02-18 10:46] LABS: ALBUMIN 3.5 G/DL (3.5-5.0); TOTAL BILIRUBIN 0.4 MG/DL (0-1.2); TOTAL PROTEIN 6.1 G/DL (6.0-8.5)
[2017-02-18 10:47] LABS: DIRECT BILIRUBIN 0.1 MG/DL (0.0-0.4); INDIRECT BILIRUBIN(NOT ORDER) 0.3 MG/DL (0.1-0.9)
[2017-02-18 22:46] LABS: CPK 76 U/L (0-200)
[2017-02-18 22:48] LABS: CK-MB 1.7 NG/ML; TROPONIN I 0.05 NG/ML (<0.05)
[2017-02-19 06:27] LABS: PARTIAL THROMBO TIME 33.4 SEC (22.5-37.2)
[2017-02-19 06:30] LABS: BASOPHILS 0.7 %; BASOPHILS ABSOLUTE 0.07 10/3/uL (0.0-0.16); EOSINOPHILS 3.9 %; EOSINOPHILS ABSOLUTE 0.39 10/3/uL (0.0-0.53); HEMOGLOBIN 17.2 g/dL (13.6-17.8); IMMATURE GRANULOCYTES 0.2 %; IMMATURE GRANULOCYTES ABSOLUTE 0.02 10/3/uL (0.0-0.11); LYMPHOCYTES 25.5 %; LYMPHOCYTES ABSOLUTE 2.55 10/3/uL (0.67-4.30); MANUAL DIFF NO %; MEAN CORPUS HGB CONC 34.4 g/dL (32.0-36.0); MEAN CORPUSCULAR HEMOGLOB 31.6 pg (26.0-34.0); MEAN CORPUSCULAR VOLUME 91.7 fL (80-100); MEAN PLATELET VOLUME 10.9 fL (9.2-13.0); MONOCYTES 8.2 %; MONOCYTES ABSOLUTE 0.82 10/3/uL (0.21-1.20); NEUTROPHILS 61.5 %; NEUTROPHILS ABSOLUTE 6.14 10/3/uL (2.02-8.40); PLATELET COUNT 221 10/3/uL (150-400); RBC DISTRIBUTION WIDTH 13.7 % (12.0-16.0); RED CELL COUNT 5.45 10/6/uL (4.7-6.1)
[2017-02-19 06:36] LABS: BUN (BLOOD UREA NITROGEN) 12 MG/DL (6-23); CALCIUM, SERUM 8.6 MG/DL (8.5-10.4); CHLORIDE, SERUM 108 MMOL/L (96-112); CO2 (CARBON DIOXIDE) 27 MMOL/L (24-34); CREATININE 0.72 MG/DL (0.70-1.30); GFR AFRICAN AMERICAN 107 ML/MIN (>=60); GFR NON AFRICAN AMERICAN 93 ML/MIN (>=60); POTASSIUM, SERUM 4.1 MMOL/L (3.5-5.3); SODIUM, SERUM 142 MMOL/L (135-148)
[2017-02-19 06:38] LABS: GLUCOSE, SERUM 111 MG/DL (60-99)
[2017-02-21 06:09] LABS: TEG PLAVIX/EFFIENT/TICLID(ADP) 74.3 % INHIB (< 40)
[2017-02-21 06:10] LABS: MAX AMP (ADP) 26.1 MM (35-68)
[2017-02-25 02:22] LABS: BASOPHILS 0.9 %; BASOPHILS ABSOLUTE 0.11 10/3/uL (0.0-0.16); EOSINOPHILS 3.6 %; EOSINOPHILS ABSOLUTE 0.45 10/3/uL (0.0-0.53); HEMATOCRIT 50.5 % (40.0-51.0); HEMOGLOBIN 17.5 g/dL (13.6-17.8); IMMATURE GRANULOCYTES 0.2 %; IMMATURE GRANULOCYTES ABSOLUTE 0.03 10/3/uL (0.0-0.11); LYMPHOCYTES 26.1 %; LYMPHOCYTES ABSOLUTE 3.27 10/3/uL (0.67-4.30); MEAN CORPUS HGB CONC 34.7 g/dL (32.0-36.0); MEAN CORPUSCULAR HEMOGLOB 31.9 pg (26.0-34.0); MEAN CORPUSCULAR VOLUME 92.2 fL (80-100); MEAN PLATELET VOLUME 10.7 fL (9.2-13.0); MONOCYTES 8.8 %; NEUTROPHILS 60.4 %; NEUTROPHILS ABSOLUTE 7.59 10/3/uL (2.02-8.40); PLATELET COUNT 246 10/3/uL (150-400); RBC DISTRIBUTION WIDTH 13.5 % (12.0-16.0); RED CELL COUNT 5.48 10/6/uL (4.7-6.1); WHITE BLOOD CELLS 12.6 10/3/uL (4.5-10.5)
[2017-02-25 02:27] LABS: MANUAL DIFF NO %
[2017-02-25 02:32] LABS: INTERNATIONAL NORMAL RATI 1.1 UNITS (-)
[2017-02-25 02:41] LABS: ALBUMIN 3.4 G/DL (3.5-5.0); ALKALINE PHOSPHATASE 91 U/L (45-117); CALCIUM, SERUM 9.1 MG/DL (8.5-10.4); CHLORIDE, SERUM 108 MMOL/L (96-112); CO2 (CARBON DIOXIDE) 24 MMOL/L (24-34); CREATININE 1.06 MG/DL (0.70-1.30); GFR AFRICAN AMERICAN 80 ML/MIN (>=60); GFR NON AFRICAN AMERICAN 69 ML/MIN (>=60); GLOBULIN 3.5 G/DL (2.5-4.1); POTASSIUM, SERUM 4.2 MMOL/L (3.5-5.3); SGOT(AST) 29 U/L (5-40); SGPT(ALT) 66 U/L (5-65); SODIUM, SERUM 143 MMOL/L (135-148); TOTAL BILIRUBIN 0.4 MG/DL (0-1.2); TOTAL PROTEIN 6.9 G/DL (6.0-8.5)
[2017-02-25 02:43] LABS: BUN (BLOOD UREA NITROGEN) 17 MG/DL (6-23); GLUCOSE, SERUM 135 MG/DL (60-99)
[2017-02-25 04:51] LABS: TEG - ANGLE 67.2 DEG (53-72); TEG - COAGULATION INDEX 0.5 (-3 TO 3); TEG - MAXIMUM AMPLITUDE 66.8 MM (50-70); TEG - RATE 6.6 MIN (5.0-10.0)
[2017-02-25 04:52] LABS: TEG PLAVIX/EFFIENT/TICLID(ADP) 36.2 % INHIB (< 40)
[2017-02-25 04:54] LABS: MAX AMP (ADP) 49.5 MM (35-68)
[2017-02-25 15:17] LABS: HEMATOCRIT 45.5 % (40.0-51.0); HEMOGLOBIN 15.7 g/dL (13.6-17.8); MEAN CORPUS HGB CONC 34.5 g/dL (32.0-36.0); MEAN CORPUSCULAR HEMOGLOB 31.7 pg (26.0-34.0); MEAN CORPUSCULAR VOLUME 91.7 fL (80-100); MEAN PLATELET VOLUME 11.1 fL (9.2-13.0); PLATELET COUNT 180 10/3/uL (150-400); RBC DISTRIBUTION WIDTH 13.6 % (12.0-16.0); RED CELL COUNT 4.96 10/6/uL (4.7-6.1)
[2017-02-25 15:22] LABS: WHITE BLOOD CELLS 28.7 10/3/uL (4.5-10.5)
[2017-02-25 15:24] LABS: MANUAL DIFF YES %
[2017-02-25 15:25] LABS: INTERNATIONAL NORMAL RATI 1.4 UNITS (-); PARTIAL THROMBO TIME 31.6 SEC (22.5-37.2)
[2017-02-25 15:28] LABS: PROTIME (NOT ORD) 16.7 SEC (12.0-14.5)
[2017-02-25 15:38] LABS: BE (BASE EXCESS) -6.4 MEQ/L (0 +/- 2.5); CARBOXYHEMOGLOBIN 0.9 % (0-3); HCO3 (ACTUAL BICARBONATE) 22.2 MEQ/L (23-27); HEMOBLOGIN CONTENT 16.6 G/DL (14-18); INSTRUMENT SERIAL # 11843; METHEMOGLOBIN 0.7 % (0-3); O2 CONTENT 22.5 VOL% (18-24); PCO2 (CO2 TENSION) 56 MMHG (35-45); PO2 (O2 TENSION) 123 MMHG (79-93); SAMPLE Arterial; pH 7.22 (7.37-7.43)
[2017-02-25 15:39] LABS: BAND NEUTROPHILS 9 %; LYMPHOCYTES 8 %; MONOCYTES 5 %; MONOCYTES ABSOLUTE (CALC) 1.44 10/3/uL (0.21-1.20); NEUTROPHILS ABSOLUTE (CALC) 24.97 10/3/uL (2.02-8.40); SEGMENTED NEUTROPHIL (0) 78 %; TOTAL NUCLEATED CELLS 100
[2017-02-25 15:40] LABS: PLATELET ESTIMATE ADQ (ADEQUATE)
[2017-02-25 15:51] LABS: BUN (BLOOD UREA NITROGEN) 19 MG/DL (6-23); CALCIUM, SERUM 8.4 MG/DL (8.5-10.4); CHLORIDE, SERUM 113 MMOL/L (96-112); CO2 (CARBON DIOXIDE) 23 MMOL/L (24-34); CREATININE 1.38 MG/DL (0.70-1.30); GFR AFRICAN AMERICAN 58 ML/MIN (>=60); GFR NON AFRICAN AMERICAN 50 ML/MIN (>=60); GLUCOSE, SERUM 145 MG/DL (60-99); SODIUM, SERUM 145 MMOL/L (135-148)
[2017-02-25 15:52] LABS: POTASSIUM, SERUM 4.8 MMOL/L (3.5-5.3)
[2017-02-25 16:35] LABS: CARBOXYHEMOGLOBIN 0.3 % (0-3); HCO3 (ACTUAL BICARBONATE) 19.8 MEQ/L (23-27); HEMOBLOGIN CONTENT 17.4 G/DL (14-18); INSTRUMENT SERIAL # 11843; METHEMOGLOBIN 0.4 % (0-3); O2 CONTENT 22.9 VOL% (18-24); PCO2 (CO2 TENSION) 40 MMHG (35-45); PO2 (O2 TENSION) 78 MMHG (79-93); SAMPLE Arterial; TIDAL VOLUME 600 ML; pH 7.31 (7.37-7.43)
[2017-02-25 17:18] LABS: FIBRINOGEN 290 MG/DL (230-462)
[2017-02-25 20:47] LABS: HEMATOCRIT 45.4 % (40.0-51.0); HEMOGLOBIN 15.4 g/dL (13.6-17.8)
[2017-02-25 21:09] LABS: BUN (BLOOD UREA NITROGEN) 20 MG/DL (6-23); CALCIUM, SERUM 8.8 MG/DL (8.5-10.4); CHLORIDE, SERUM 115 MMOL/L (96-112); CO2 (CARBON DIOXIDE) 19 MMOL/L (24-34); CREATININE 1.47 MG/DL (0.70-1.30); GFR AFRICAN AMERICAN 54 ML/MIN (>=60); GFR NON AFRICAN AMERICAN 47 ML/MIN (>=60); GLUCOSE, SERUM 139 MG/DL (60-99); POTASSIUM, SERUM 4.5 MMOL/L (3.5-5.3); SODIUM, SERUM 145 MMOL/L (135-148)
[2017-02-25 21:32] LABS: INSTRUMENT SERIAL # 11843; PCO2 (CO2 TENSION) 39 MMHG (35-45); PO2 (O2 TENSION) 68 MMHG (79-93)
[2017-02-25 21:33] LABS: CARBOXYHEMOGLOBIN 0.7 % (0-3); DEVICE VAPOTHERM 30L; HCO3 (ACTUAL BICARBONATE) 18.8 MEQ/L (23-27); HEMOBLOGIN CONTENT 15.7 G/DL (14-18); METHEMOGLOBIN 0.5 % (0-3); O2 CONTENT 20.1 VOL% (18-24); OPERATOR ID 32193; SAMPLE Arterial
[2017-02-26 03:37] LABS: BE (BASE EXCESS) -4.3 MEQ/L (0 +/- 2.5); CARBOXYHEMOGLOBIN 0.6 % (0-3); DEVICE HFNC; HCO3 (ACTUAL BICARBONATE) 20.7 MEQ/L (23-27); HEMOBLOGIN CONTENT 14.8 G/DL (14-18); INSTRUMENT SERIAL # 11843; METHEMOGLOBIN 0.4 % (0-3); O2 CONTENT 18.4 VOL% (18-24); OPERATOR ID 17370; PCO2 (CO2 TENSION) 38 MMHG (35-45); PO2 (O2 TENSION) 59 MMHG (79-93); SAMPLE Arterial; pH 7.35 (7.37-7.43)
[2017-02-26 03:52] LABS: BASOPHILS 0 %; BASOPHILS ABSOLUTE 0.01 10/3/uL (0.0-0.16); EOSINOPHILS 0 %; EOSINOPHILS ABSOLUTE 0.01 10/3/uL (0.0-0.53); HEMATOCRIT 42.3 % (40.0-51.0); HEMOGLOBIN 14.4 g/dL (13.6-17.8); IMMATURE GRANULOCYTES 0.4 %; IMMATURE GRANULOCYTES ABSOLUTE 0.09 10/3/uL (0.0-0.11); LYMPHOCYTES ABSOLUTE 1.16 10/3/uL (0.67-4.30); MEAN CORPUSCULAR HEMOGLOB 31.6 pg (26.0-34.0); MEAN PLATELET VOLUME 10.9 fL (9.2-13.0); MONOCYTES ABSOLUTE 2.77 10/3/uL (0.21-1.20); NEUTROPHILS 82.6 %; NEUTROPHILS ABSOLUTE 19.04 10/3/uL (2.02-8.40); PLATELET COUNT 153 10/3/uL (150-400); RBC DISTRIBUTION WIDTH 13.8 % (12.0-16.0); RED CELL COUNT 4.55 10/6/uL (4.7-6.1); WHITE BLOOD CELLS 23.1 10/3/uL (4.5-10.5)
[2017-02-26 04:01] LABS: MANUAL DIFF NO %
[2017-02-26 04:05] LABS: BUN (BLOOD UREA NITROGEN) 23 MG/DL (6-23); CALCIUM, SERUM 8.8 MG/DL (8.5-10.4); CHLORIDE, SERUM 112 MMOL/L (96-112); CREATININE 1.14 MG/DL (0.70-1.30); GFR AFRICAN AMERICAN 74 ML/MIN (>=60); GFR NON AFRICAN AMERICAN 63 ML/MIN (>=60); POTASSIUM, SERUM 4.9 MMOL/L (3.5-5.3); SODIUM, SERUM 144 MMOL/L (135-148)
[2017-02-26 04:06] LABS: CO2 (CARBON DIOXIDE) 23 MMOL/L (24-34); GLUCOSE, SERUM 103 MG/DL (60-99)
[2017-02-26 19:31] LABS: HEMOGLOBIN 14.5 g/dL (13.6-17.8)
[2017-02-26 19:39] LABS: POTASSIUM, SERUM 5.5 MMOL/L (3.5-5.3)
[2017-02-27 04:05] LABS: BASOPHILS 0.1 %; BASOPHILS ABSOLUTE 0.02 10/3/uL (0.0-0.16); EOSINOPHILS 0 %; HEMATOCRIT 41.9 % (40.0-51.0); HEMOGLOBIN 14.2 g/dL (13.6-17.8); IMMATURE GRANULOCYTES 0.6 %; IMMATURE GRANULOCYTES ABSOLUTE 0.14 10/3/uL (0.0-0.11); LYMPHOCYTES 7.8 %; LYMPHOCYTES ABSOLUTE 1.88 10/3/uL (0.67-4.30); MEAN CORPUS HGB CONC 33.9 g/dL (32.0-36.0); MEAN CORPUSCULAR HEMOGLOB 31.6 pg (26.0-34.0); MEAN CORPUSCULAR VOLUME 93.3 fL (80-100); MEAN PLATELET VOLUME 11.6 fL (9.2-13.0); MONOCYTES 11.7 %; NEUTROPHILS 79.8 %; NEUTROPHILS ABSOLUTE 19.16 10/3/uL (2.02-8.40); PLATELET COUNT 181 10/3/uL (150-400); RBC DISTRIBUTION WIDTH 13.8 % (12.0-16.0); RED CELL COUNT 4.49 10/6/uL (4.7-6.1)
[2017-02-27 04:07] LABS: BUN (BLOOD UREA NITROGEN) 39 MG/DL (6-23); CALCIUM, SERUM 9.1 MG/DL (8.5-10.4); CHLORIDE, SERUM 106 MMOL/L (96-112); CO2 (CARBON DIOXIDE) 25 MMOL/L (24-34); CREATININE 1.28 MG/DL (0.70-1.30); GFR AFRICAN AMERICAN 64 ML/MIN (>=60); GFR NON AFRICAN AMERICAN 55 ML/MIN (>=60); GLUCOSE, SERUM 150 MG/DL (60-99); POTASSIUM, SERUM 5.3 MMOL/L (3.5-5.3); SODIUM, SERUM 138 MMOL/L (135-148)
[2017-02-27 04:16] LABS: MANUAL DIFF NO %
[2017-02-27 18:53] LABS: POTASSIUM, SERUM 5.1 MMOL/L (3.5-5.3)
[2017-02-28 04:26] LABS: BASOPHILS 0.1 %; BASOPHILS ABSOLUTE 0.02 10/3/uL (0.0-0.16); EOSINOPHILS 0 %; EOSINOPHILS ABSOLUTE 0.01 10/3/uL (0.0-0.53); HEMATOCRIT 40.7 % (40.0-51.0); HEMOGLOBIN 13.6 g/dL (13.6-17.8); IMMATURE GRANULOCYTES 0.4 %; IMMATURE GRANULOCYTES ABSOLUTE 0.08 10/3/uL (0.0-0.11); LYMPHOCYTES 10.4 %; LYMPHOCYTES ABSOLUTE 2.09 10/3/uL (0.67-4.30); MEAN CORPUS HGB CONC 33.4 g/dL (32.0-36.0); MEAN CORPUSCULAR HEMOGLOB 31.1 pg (26.0-34.0); MEAN CORPUSCULAR VOLUME 92.9 fL (80-100); MEAN PLATELET VOLUME 11.7 fL (9.2-13.0); MONOCYTES 14.9 %; MONOCYTES ABSOLUTE 3.01 10/3/uL (0.21-1.20); NEUTROPHILS 74.2 %; NEUTROPHILS ABSOLUTE 14.94 10/3/uL (2.02-8.40); PLATELET COUNT 193 10/3/uL (150-400); RBC DISTRIBUTION WIDTH 13.8 % (12.0-16.0); RED CELL COUNT 4.38 10/6/uL (4.7-6.1); WHITE BLOOD CELLS 20.2 10/3/uL (4.5-10.5)
[2017-02-28 04:32] LABS: MANUAL DIFF NO %
[2017-02-28 04:39] LABS: BUN (BLOOD UREA NITROGEN) 38 MG/DL (6-23); CHLORIDE, SERUM 107 MMOL/L (96-112); CO2 (CARBON DIOXIDE) 27 MMOL/L (24-34); CREATININE 0.94 MG/DL (0.70-1.30); GFR AFRICAN AMERICAN 93 ML/MIN (>=60); GFR NON AFRICAN AMERICAN 80 ML/MIN (>=60); GLUCOSE, SERUM 121 MG/DL (60-99); POTASSIUM, SERUM 4.8 MMOL/L (3.5-5.3); SODIUM, SERUM 141 MMOL/L (135-148)
[2017-03-01 06:36] LABS: BASOPHILS 0.3 %; BASOPHILS ABSOLUTE 0.05 10/3/uL (0.0-0.16); EOSINOPHILS 0.9 %; EOSINOPHILS ABSOLUTE 0.15 10/3/uL (0.0-0.53); HEMATOCRIT 41.2 % (40.0-51.0); HEMOGLOBIN 14.1 g/dL (13.6-17.8); IMMATURE GRANULOCYTES 0.4 %; IMMATURE GRANULOCYTES ABSOLUTE 0.06 10/3/uL (0.0-0.11); LYMPHOCYTES 16.9 %; MEAN CORPUS HGB CONC 34.2 g/dL (32.0-36.0); MEAN CORPUSCULAR HEMOGLOB 31.6 pg (26.0-34.0); MEAN CORPUSCULAR VOLUME 92.4 fL (80-100); MEAN PLATELET VOLUME 11.3 fL (9.2-13.0); MONOCYTES 12.8 %; MONOCYTES ABSOLUTE 2.05 10/3/uL (0.21-1.20); NEUTROPHILS 68.7 %; NEUTROPHILS ABSOLUTE 10.95 10/3/uL (2.02-8.40); RBC DISTRIBUTION WIDTH 13.5 % (12.0-16.0); RED CELL COUNT 4.46 10/6/uL (4.7-6.1)
[2017-03-01 06:47] LABS: ALBUMIN 3.1 G/DL (3.5-5.0); CALCIUM, SERUM 9.1 MG/DL (8.5-10.4); CHLORIDE, SERUM 107 MMOL/L (96-112); CO2 (CARBON DIOXIDE) 25 MMOL/L (24-34); CREATININE 0.91 MG/DL (0.70-1.30); GFR AFRICAN AMERICAN 97 ML/MIN (>=60); GFR NON AFRICAN AMERICAN 83 ML/MIN (>=60); GLUCOSE, SERUM 108 MG/DL (60-99); POTASSIUM, SERUM 4.1 MMOL/L (3.5-5.3); SODIUM, SERUM 143 MMOL/L (135-148)
[2017-03-01 06:52] LABS: BUN (BLOOD UREA NITROGEN) 32 MG/DL (6-23)
[2017-03-01 06:57] LABS: MANUAL DIFF NO %; PLATELET COUNT 262 10/3/uL (150-400)
[2017-03-02 05:40] LABS: BASOPHILS 0.4 %; BASOPHILS ABSOLUTE 0.06 10/3/uL (0.0-0.16); EOSINOPHILS 2.2 %; EOSINOPHILS ABSOLUTE 0.31 10/3/uL (0.0-0.53); HEMATOCRIT 41.4 % (40.0-51.0); HEMOGLOBIN 14.1 g/dL (13.6-17.8); IMMATURE GRANULOCYTES 0.5 %; IMMATURE GRANULOCYTES ABSOLUTE 0.07 10/3/uL (0.0-0.11); LYMPHOCYTES 18.4 %; LYMPHOCYTES ABSOLUTE 2.56 10/3/uL (0.67-4.30); MANUAL DIFF NO %; MEAN CORPUS HGB CONC 34.1 g/dL (32.0-36.0); MEAN CORPUSCULAR HEMOGLOB 31.7 pg (26.0-34.0); MEAN PLATELET VOLUME 10.8 fL (9.2-13.0); MONOCYTES 13.9 %; MONOCYTES ABSOLUTE 1.93 10/3/uL (0.21-1.20); NEUTROPHILS 64.6 %; NEUTROPHILS ABSOLUTE 8.96 10/3/uL (2.02-8.40); PLATELET COUNT 298 10/3/uL (150-400); RBC DISTRIBUTION WIDTH 13.2 % (12.0-16.0); RED CELL COUNT 4.45 10/6/uL (4.7-6.1); WHITE BLOOD CELLS 13.9 10/3/uL (4.5-10.5)
[2017-03-02 05:49] LABS: BUN (BLOOD UREA NITROGEN) 29 MG/DL (6-23); CALCIUM, SERUM 8.5 MG/DL (8.5-10.4); CHLORIDE, SERUM 108 MMOL/L (96-112); CO2 (CARBON DIOXIDE) 27 MMOL/L (24-34); CREATININE 0.92 MG/DL (0.70-1.30); GFR AFRICAN AMERICAN 95 ML/MIN (>=60); GFR NON AFRICAN AMERICAN 82 ML/MIN (>=60); GLUCOSE, SERUM 97 MG/DL (60-99); POTASSIUM, SERUM 4.2 MMOL/L (3.5-5.3); SODIUM, SERUM 145 MMOL/L (135-148)
[2017-03-02] MEDS ORDERED: LOP50 PO (11:39)
[2017-03-02] MEDS ORDERED: SENTAB PO (11:44)
[2017-03-02] MEDS ORDERED: SPIRIVA INH (11:45)
[2017-03-02] MEDS ORDERED: NORV10 PO (11:47)
[2017-03-02] MEDS ORDERED: LIPITOR40 PO (11:47)
[2017-03-02] MEDS ORDERED: ALBUTEROL5 INH (11:49)
[2017-03-02] MEDS ORDERED: P10 PO (11:51)
[2017-03-02] MEDS ORDERED: NORCO1 TA1 PO (11:51)
== END 2017-03-02 12:42 | disposition home or self-care (01) | DRG 233 ==
LOC: ER 23:50 → 1SO 23:59 → CVICU 02-25 15:00 → 5NO 02-28 16:55
PROVIDERS: Hospitalist; Internal Medicine; Nurse Practitioner; Nurse Practitioner Family; Specialist; Thoracic Surgery (Cardiothoracic Vascular Surgery)
PROC: 4A023N7 Measurement of Cardiac Sampling and Pressure, Left Heart, Percutaneous Approach (ICD-10-PCS; principal; 2017-02-18)
PROC: B2151ZZ Fluoroscopy of Left Heart using Low Osmolar Contrast (ICD-10-PCS; 2017-02-18)
PROC: 021209W Bypass Coronary Artery, Three Arteries from Aorta with Autologous Venous Tissue, Open Approach (ICD-10-PCS; 2017-02-18)
PROC: B2111ZZ Fluoroscopy of Multiple Coronary Arteries using Low Osmolar Contrast (ICD-10-PCS; 2017-02-18)
PROC: 02100Z9 Bypass Coronary Artery, One Artery from Left Internal Mammary, Open Approach (ICD-10-PCS; 2017-02-18)
PROC: 06BP0ZZ Excision of Right Saphenous Vein, Open Approach (ICD-10-PCS; 2017-02-25)
PROC: 0PH000Z Insertion of Rigid Plate Internal Fixation Device into Sternum, Open Approach (ICD-10-PCS; 2017-02-25)
PROC: 5A1221Z Performance of Cardiac Output, Continuous (ICD-10-PCS; 2017-02-25)
PROC: B246ZZ4 Ultrasonography of Right and Left Heart, Transesophageal (ICD-10-PCS; 2017-02-25)
DX: I25.110 Atherosclerotic heart disease of native coronary artery with unstable angina pectoris (principal); J95.821 Acute postprocedural respiratory failure; I50.33 Acute on chronic diastolic (congestive) heart failure; G45.9 Transient cerebral ischemic attack, unspecified; J98.11 Atelectasis; J44.9 Chronic obstructive pulmonary disease, unspecified; E78.5 Hyperlipidemia, unspecified; F17.210 Nicotine dependence, cigarettes, uncomplicated; Z95.5 Presence of coronary angioplasty implant and graft; Z87.442 Personal history of urinary calculi; I16.0 Hypertensive urgency; Z79.82 Long term (current) use of aspirin; Z79.899 Other long term (current) drug therapy; G47.33 Obstructive sleep apnea (adult) (pediatric); I73.9 Peripheral vascular disease, unspecified; F41.9 Anxiety disorder, unspecified; I11.0 Hypertensive heart disease with heart failure; E66.01 Morbid (severe) obesity due to excess calories; Z68.36 Body mass index [BMI] 36.0-36.9, adult
CPT/HCPCS: 31720; 36415; 36600; 70450; 71010; 71020; 71250; 80048; 80053; 80061; 80069; 80076; 82140; 82306; 82330; 82550; 82553; 82607; 82746; 82803; 82805; 82947; 82962; 83036; 83735; 83880; 84132; 84295; 84439; 84443; 84484; 85014; 85018; 85025; 85347; 85384; 85576; 85576-59; 85610; 85730; 86850; 86900; 86901; 87641; 93005; 93312; 93320; 93325; 93458; 93880; 94002; 94010; 94640; 94660; 94667; 94668; 94762; 94770; 99152; 99285; A9270-GY; C1713; C1769; C1781; C1887; C1894; C8929; G0365; J0282; J0360; J0690; J1170; J1644; J2150; J2250; J2260; J2370; J2440; J2720; J2930; J3010; J3370; J3475; J3480; P9045; P9047; Q9957; Q9967